=== PATIENT | male | born 1945 | race Caucasian/White ===

== ENCOUNTER 2019-09-12 10:13 | Emergency (ER) | payer OTHER ==
[~2019-09-12] VITALS: Ht 170.2 cm; Wt 60.0 kg
--- NOTE | 2019-09-12 10:28 | NUR ---
PT BIB EMS FOR ABDMONAL PAIN STARTING THIS AM. PT STATES PAIN STARTED THIS AM AND COULDNT SLEEP. NO N/V/D. ROME SP, SOB, FEVER OR COUGH. TERRITORY SUPERVISOR APPLIED. VSS. PT NOTTAWASEPPI POTAWATOMI.
[2019-09-12 11:02] LABS: BASOPHILS # (AUTO) 0.01 x10^3/uL (0-0.1); BASOPHILS % (AUTO) 0 % (0-1); EOSINOPHILS # (AUTO) 0.11 x10^3/uL (0-0.4); EOSINOPHILS % (AUTO) 2 % (1-7); LYMPHOCYTES % (AUTO) 10 % (22-44); MD NO; MEAN CORPUSCULAR HEMOGLOBIN 31.3 pg (27.5-34.5); MEAN CORPUSCULAR HGB CONC 32.6 g/dL (33.2-36.2); MEAN CORPUSCULAR VOLUME 95.8 fL (81-97); MEAN PLATELET VOLUME 7.5 fL (7.4-10.4); MONOCYTES % (AUTO) 10 % (2-9); NEUTROPHILS # (AUTO) 4.14 x10^3/uL (1.8-6.8); NEUTROPHILS % (AUTO) 79 % (42-75); PLATELET COUNT 182 x10^3/uL (130-400); RED CELL DISTRIBUTION WIDTH 14.2 % (9.4-14.8)
[2019-09-12 11:09] LABS: ALANINE AMINOTRANSFERASE 18 U/L (12-78); ALBUMIN 3.2 g/dL (3.4-5.0); ANION GAP 5 mmol/L (5-15); CALCIUM 9.1 mg/dL (8.5-10.1); CHLORIDE 103 mmol/L (98-107); CREATININE 0.86 mg/dL (0.7-1.3)
[2019-09-12 11:11] LABS: ALKALINE PHOSPHATASE 68 U/L (45-117); BILIRUBIN,TOTAL 0.5 mg/dL (0.2-1.0); TOTAL PROTEIN 6.9 g/dL (6.4-8.2)
--- NOTE | 2019-09-12 11:48 | NUR ---
PT SLEEPING, URGED PT TO VOID. VSS
--- NOTE | 2019-09-12 12:30 | NUR ---
PT SIPPING ON WATER, WATCHING TV. DENIES N/V ABDOMINAL PAIN AT THIS TIME.
--- NOTE | 2019-09-12 13:56 | NUR ---
ASSISTED PT GETTING DRESSED AND DC INSTRUCTIONS. [facility] WILL TAKE PT HOME.
[2019-09-12 14:11] VITALS: BP 136/80
== END 2019-09-12 14:17 | disposition home or self-care (01) ==
LOC: ED 12:40
DX: R10.31 Right lower quadrant pain (principal)
CPT/HCPCS: 36415; 74021; 80053; 85025; 99284